=== PATIENT | female | born 1960 | race Caucasian/White ===

== ENCOUNTER 2023-07-16 22:28 | Emergency (ER) | payer OTHER, SELFPAY ==
[2023-07-16 22:32] VITALS: BP 170/97; PULSE 93; RESP 20; TEMP 36.6; O2SAT 97; BMI 33.3
[2023-07-16] MEDS: TETRACAINE HCL 0.5% OP SOL 80 DROP/4 ML BOTTLE OP (22:37)
[2023-07-16] MEDS: FLUORESCEIN SODIUM 1 MG STRIP OP (22:39)
[2023-07-16] MEDS: ERYTHROMYCIN OP OINT 0.5% 1 GM TUBE OP (23:10)
--- NOTE | 2023-07-17 00:03 | ED_ITS ---
HPI - Eye Problem General Chief complaint: Eye Problems Stated complaint: FOREIGN BODY IN EYE Time Seen by Provider: 07/16/23 22:30 Source: patient Mode of arrival: walk-in Limitations: no limitations History of Present Illness HPI Narrative: 63-year-old female to the emergency department with chief complaint of Foreign body sensation in her right eye. She is trying to get out of contact and is concerned that it may be stuck. No change in visual acuity. Otherwise at baseline health. Related Data Previous Rx's Medication Instructions Recorded ciprofloxacin HCl 0.3 % eye drops 2 drp ophthalmic (eye) Q4H 5 days 07/16/23 #2.5 mL Allergies Allergy/AdvReac Type Severity Reaction Status Date / Time No Known Drug Allergies Allergy Verified 07/16/23 22:34 Review of Systems ROS Status of ROS 10 or more systems reviewed and unremark able except as noted in history and below Exam Narrative Exam Narrative: VITALS: I have reviewed the triage vital signs. GENERAL: Well developed, well appearing adult in no acute distress. NEURO: Alert and oriented. Moves all extremities. Face is symmetric and expressive. Right eye: Pupils equal round react to light. Conjunctiva is injected. There is fluorescein uptake at 5 PM in a 3 mm linear pattern. Corneal ulcer. No Isac sign. HENT: Normocephalic, atraumatic. Hearing is grossly intact. Nares grossly patent and without discharge. Mucous membranes moist. NECK: No JVD. Patient moves neck without restriction. EXTREMITIES: Symmetric muscle bulk. No joint swelling. No clubbing, cyanosis, or deformity. SKIN: Warm and dry. Normal turgor. No rash or lesions appreciated. PSYCH: Mood, affect, and interaction is appropriate to the setting. Constitutional Vital Signs, click to edit/add: Last Vital Signs Temp 97.8 F 07/16/23 22:32 Pulse 93 H 07/16/23 22:32 Resp 20 07/16/23 22:32 BP 170/97 H 07/16/23 22:32 Pulse Ox 97 07/16/23 22:32 O2 Del Method Room Air 07/16/23 22:32 Course Vital Signs Vital signs: Vital Signs Temperature 97.8 F 07/16/23 22:32 Pulse Rate 93 H 07/16/23 22:32 Respiratory Rate 20 07/16/23 22:32 Blood Pressure 170/97 H 07/16/23 22:32 Pulse Oximetry 97 07/16/23 22:32 Oxygen Delivery Method Room Air 07/16/23 22:32 Temperature 97.8 F 07/16/23 22:32 Pulse Rate 93 H 07/16/23 22:32 Respiratory Rate 20 07/16/23 22:32 Blood Pressure 170/97 H 07/16/23 22:32 Pulse Oximetry 97 07/16/23 22:32 Oxygen Delivery Method Room Air 07/16/23 22:32 MDM - Eye Problem MDM Narrative Medical decision making narrative: 63-year-old female to the emergency Department a foreign body sensation in the right eye. No visual acuity. She does have a Corneal abrasion as above. No foreign body. Cipro eyedrops due to contact use. No complications occurred by neurology. She'll follow-up with her residential housekeeper on Wednesday. Dr. Tejada were discussed. All questions were answered. Patient was discharged home. Discharge Plan Discharge Chief Complaint: Eye Problems Clinical Impression: Corneal abrasion Patient Disposition: Home, Self-Care Time of Disposition Decision: 22:46 Mode of Transportation: Private Vehicle Prescriptions / Home Meds: New ciprofloxacin HCl 0.3 % drops 2 drp ophthalmic (eye) Q4H 5 Days Qty: 2.5 0RF Print Language: Chinese Instructions: Corneal Abrasion (ED) Additional Instructions: Follow-up with your residential housekeeper on Wednesday. Do not wear contacts until cleared to do so by ophthalmology. Using antibiotic eyedrops as prescribed. Stand Alone Forms: Portal Instructions Referrals: Shelby Gandhi MD [Primary Care Provider] - 1 week Discharge Date/Time: 07/16/23 23:15
== END 2023-07-16 23:15 | disposition home or self-care (01) ==
PROVIDERS: Emergency Provider Student in an Organized Health Care Education/Training Program; PCP Family Medicine
DX: S05.01XA Injury of conjunctiva and corneal abrasion without foreign body, right eye, initial encounter (principal); X58.XXXA Exposure to other specified factors, initial encounter
CPT/HCPCS: 99284

== ENCOUNTER 2023-10-29 10:35 | Outpatient (OUT) | payer OTHER, SELFPAY ==
[2023-10-29 11:00] LABS: Basophils Absolute Auto 0.1 10^3/uL (0.0-0.1); Basophils Percent Auto 0.9 % (0.2-2.0); Eosinophils Absolute Auto 0.4 10^3/uL (0.0-0.7); Eosinophils Percent Auto 4.6 % (0.9-7.0); Hematocrit 41.1 % (36.0-48.0); Hemoglobin 13.4 g/dL (12.0-16.0); Immature Granulocytes Abs Auto 0.05 10^3/uL (0.00-0.03); Immature Granulocytes Pct Auto 0.6 % (0.0-0.5); Lymphocytes Absolute Auto 1.5 10^3/uL (1.2-3.8); Lymphocytes Percent Auto 17.1 % (20.5-60.0); Mean Corpuscular HGB Conc 32.6 g/dL (29.9-35.2); Mean Corpuscular Hemoglobin 28.3 pg (26.7-34.0); Mean Corpuscular Volume 86.7 fL (81.0-99.0); Mean Platelet Volume 9.8 fL (9.5-13.5); Monocytes Absolute Auto 0.7 10^3/uL (0.3-0.8); Monocytes Percent Auto 7.9 % (1.7-12.0); Neutrophils Absolute Auto 6.1 10^3/uL (1.4-6.5); Neutrophils Percent Auto 68.9 % (43.0-75.0); Platelet Count 323 10^3/uL (150-450); Red Blood Count 4.74 10^6/uL (4.20-5.40); Red Cell Distribution Width 13.2 % (11.0-15.0); White Blood Count 8.8 10^3/uL (4.0-11.0)
[2023-10-29 12:18] LABS: Alanine Aminotransferase 27 U/L (14-59); Albumin Globulin Ratio 0.9; Albumin Level 3.6 g/dL (3.4-5.0); Alkaline Phosphatase 81 U/L (46-116); Anion Gap 12.6; Aspartate Amino Transferase 18 U/L (15-37); BUN Creatinine Ratio 15.9; Bilirubin Total 0.5 mg/dL (0.2-1.0); Calcium 9.6 mg/dL (8.5-10.1); Carbon Dioxide 28.7 mmol/L (21.0-32.0); Chloride 102 mmol/L (98-107); Chol HDL Ratio 3.1; Cholesterol 163 mg/dL (<=200); Estimated GFR (African America >60 (>=60); Estimated GFR (Non-African Ame >60 (>=60); Globulin 3.8 g/dL; Glucose 99 mg/dL (74-106); HDL Cholesterol 52 mg/dL (40-60); LDL Cholesterol Calculated 97.8 mg/dL; Potassium 4.3 mmol/L (3.5-5.1); Sodium 139 mmol/L (136-145); Total Protein 7.4 g/dL (6.4-8.2); Triglycerides 66 mg/dL (<=150); VLDL CHOLESTEROL 13.2 mg/dL
== END 2023-10-29 10:36 | disposition home or self-care (01) ==
PROVIDERS: PCP Family Medicine; Visit Provider Family Medicine
DX: Z00.00 Encounter for general adult medical examination without abnormal findings (principal)
CPT/HCPCS: 36415; 80053; 80061; 85025